=== PATIENT | female | born 1950 | race Caucasian/White ===

== ENCOUNTER 2022-08-21 10:43 | Day surgery (SDC) | payer MEDICARE, OTHER ==
[~2022-08-21] VITALS: Ht 152.4 cm; Wt 88.4 kg
[~2022-08-21 10:43] MED LIST: ATOR10 PO
[2022-08-21] MEDS ORDERED: PRAV20 (10:59)
[2022-08-21] MEDS ORDERED: OMEP20ER (10:59)
[2022-08-21 13:51] VITALS: BP 120/59
--- NOTE | 2022-08-21 13:54 | NUR ---
08/21/22 1354 Stella López LATE ENTRY FOR TODAY DR. SNOW EVALUATED PT AND DEEMED PT APPROPRIATE FOR NURSE SEDATION.
== END 2022-08-21 13:48 | disposition home or self-care (01) ==
LOC: ORSCSDS 10:43
PROVIDERS: Internal Medicine Gastroenterology
PROC: 0DBM8ZX Excision of Descending Colon, Via Natural or Artificial Opening Endoscopic, Diagnostic (ICD-10-PCS; principal; 2022-08-21 12:00)
DX: Z12.11 Encounter for screening for malignant neoplasm of colon (principal); D12.4 Benign neoplasm of descending colon; G47.33 Obstructive sleep apnea (adult) (pediatric); Z79.899 Other long term (current) drug therapy
CPT/HCPCS: 88305; J2704; J7120

== ENCOUNTER 2024-07-19 20:11 | Emergency (ER) | payer OTHER, MEDICARE ==
[~2024-07-19] VITALS: Ht 154.9 cm; Wt 83.9 kg
[~2024-07-19 20:11] MED LIST changes: +OMEP20ER; +PRAV20
[2024-07-19] MEDS ORDERED: JARDIANCE25 MG PO (22:00)
[2024-07-19] MEDS ORDERED: Ketorolac Tromethamine 15mg Vial IM ONE (22:15)
[2024-07-19] MEDS ORDERED: Diphth,Pertuss(Acell),Tet Vac 0.5 ML VIAL IM ONE (22:45)
[2024-07-19] MEDS ORDERED: ASPERFLEX1 EACH TOP (22:50)
[2024-07-19 22:55] VITALS: BP 147/70
== END 2024-07-19 22:56 | disposition home or self-care (01) ==
LOC: ER 20:11
DX: S02.40CA Maxillary fracture, right side, initial encounter for closed fracture (principal); S01.511A Laceration without foreign body of lip, initial encounter; S00.31XA Abrasion of nose, initial encounter; W01.0XXA Fall on same level from slipping, tripping and stumbling without subsequent striking against object, initial encounter; Z79.899 Other long term (current) drug therapy
CPT/HCPCS: 12011; 70450; 70486; 90471; 90715; 99283-25; J1885